=== PATIENT | female | born 2005 | race Caucasian/White ===

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

== ENCOUNTER 2024-02-11 17:03 | Emergency (ER) | payer OTHER ==
[2024-02-11] MEDS: BUPIVACAINE 0.5% PF 10 ML VIAL SUBQ STA (18:01)
--- NOTE | 2024-02-11 18:20 | ED Physician Documentation ---
PD HPI SKIN - Stated complaint Stated Complaint: INGROWN TOENAIL - Chief complaint Chief Complaint: Wound - Additional information Additional information: 18-year-old female presents emergency department for left first toe ingrown toenail to the medial aspect. Patient says that this has been ongoing now for couple days she tried to use tools at home to alleviate the pain but she started to notice increased swelling today to the point where she feels like is having a hard time ambulating on it or touching it. She does not have any type 2 diabetes. And said that she did not clean the tools prior to using them on her toe. No fevers or chills. PD PAST MEDICAL HISTORY - Past Medical History Cardiovascular: None Respiratory: Asthma Neuro: None Endocrine/Autoimmune: None GI: None REINSURANCE CLAIM ANALYST: None HEENT: None Psych: Depression, Anxiety Musculoskeletal: None Derm: None - Past Surgical History Past Surgical History: No - Present Medications Home Medications: Ambulatory Orders Medication Instructions Recorded Confirmed Sertraline [Zoloft] 100 mg PO DAILY 12/11/20 02/11/24 - Allergies Allergies/Adverse Reactions: Allergies Allergy/AdvReac Type Severity Reaction Status Date / Time No Known Drug Allergies Allergy Verified 02/11/24 17:13 - Social History Does the pt smoke?: No Smoking Status: Never smoker Does the pt drink ETOH?: No Does the pt have substance abuse?: No - Immunizations Immunizations are current?: Yes - POLST Patient has POLST: No PD ED PE NORMAL - Vitals Vital signs reviewed: Yes - General General: Alert and oriented X 3, No acute distress, Well developed/nourished - Free text exam Free text exam: Left first toe. Swelling and inflammation with scant purulent drainage to the left distal medial toenail. Results - Vitals Vitals: Vital Signs - 24 hr 02/11/24 02/11/24 17:09 18:52 Temperature 36.8 C 37.2 C Heart Rate 78 80 Respiratory 16 18 Rate Blood Pressure 133/95 H 128/79 O2 Saturation 100 98 Oxygen O2 Source Room air PD Medical Decision Making - ED course ED course: 18-year-old female presents emergency department for an ingrown toenail. The ingrown toenail is very mild a mild incision was placed along the medial aspect of the toenail and ingrown toenail was removed without any difficulty or complication. She was given bacitracin ointment to put on top and was told to continue with bacitracin with ointment with bulky dressing of the left toenail until it completely heals. Patient was taught how to cut toenails at home to prevent this from continuing to happen again. Given that the ingrown toenail was removed I do not see any indication to prescribe antibiotics for this. Patient given return precautions and taught signs and symptoms of infection to watch out for. Departure - Departure Disposition: 01 Home, Self Care Clinical Impression: Ingrown toenail of left foot Condition: Good Instructions: Ingrown Toenails, ED Ingrown Toenail Excised Comments: Thank you for trusting us with your care, we have evaluated you for your left toenail infection. We have excised and removed the ingrown portion of your toenail. In the future make sure that you are only using clean tools if you are trying to manage ingrown toenails at home. Make sure that you are cutting your toenails straight across instead of deep or too short as this can cause ingrown toenails in the future. Wash it with only soap and water he can do some Epsom salt bath soaks as well to help dry out the infection. Please come back to the ER if you are starting to notice any worsening signs or symptoms of infection which include drainage that is yellow/green, worsening redness and swelling, streaking going up your foot, or fat swollen red toe. Forms: PCP List Discharge Date/Time: 02/11/24 18:47
[2024-02-11] MEDS: BACITRACIN ZINC OINT 1 PACKET TOP STA (18:39)
[2024-02-11 18:58] VITALS: BP 128/79; O2SAT 98
== END 2024-02-11 18:47 | disposition home or self-care (01) ==
LOC: ED 17:03
DX: L60.0 Ingrowing nail (principal)
CPT/HCPCS: 11750; 99283; A9270

== ENCOUNTER 2024-03-14 19:47 | Emergency (ER) | payer OTHER ==
[2024-03-14 19:53] VITALS: BP 144/92; O2SAT 100
--- NOTE | 2024-03-14 20:15 | ED Physician Documentation ---
History of Present Illness - Stated complaint Stated Complaint: L EAR PX - Chief complaint Chief Complaint: Heent - History obtained from History obtained from: Patient - History of Present Illness Timing: Today Pain level max: 5 Pain level now: 5 - Additonal information Additional information: 18-year-old female presents to the emergency department complaint of left ear pain that started today. Has had mild rhinorrhea, cough and congestion as well. No fevers. No abdominal pain, nausea, vomiting. Feels similar to prior ear infections. No significant sore throat. No chest pain. Denies any possibility of . Not breast-feeding. Nothing makes it better or worse. Review of Systems Constitutional: denies: Fever, Chills GI: denies: Vomiting : denies: Now [facility] PAST MEDICAL HISTORY - Past Medical History Past Medical History: Yes Cardiovascular: None Respiratory: Asthma Neuro: None Endocrine/Autoimmune: None GI: None TAIL PULLER: None HEENT: None Psych: Depression, Anxiety Musculoskeletal: None Derm: None - Past Surgical History Past Surgical History: No - Present Medications Home Medications: Ambulatory Orders Medication Instructions Recorded Confirmed Sertraline [Zoloft] 100 mg PO DAILY 12/11/20 02/11/24 Amox/Clav 875/125 [Augmentin] 1 tab PO Q12H #14 tablet 03/14/24 - Allergies Allergies/Adverse Reactions: Allergies Allergy/AdvReac Type Severity Reaction Status Date / Time No Known Drug Allergies Allergy Verified 03/14/24 19:52 - Social History Does the pt smoke?: No Smoking Status: Never smoker Does the pt drink ETOH?: No Does the pt have substance abuse?: No - Immunizations Immunizations are current?: Yes - POLST Patient has POLST: No PD ED PE NORMAL - Vitals Vital signs reviewed: Yes - General General: Alert and oriented X 3, No acute distress - HEENT HEENT: Moist mucous membranes, Pharynx benign, Other (Right ear is normal, left TM is erythematous, dull, bulging with loss of landmarks. Purulent fluid present.) - Neck Neck: Supple, no meningeal sign, No adenopathy - Cardiac Cardiac: RRR - Respiratory Respiratory: No respiratory distress, Clear bilaterally - Derm Derm: Warm and dry - Neuro Neuro: Alert and oriented X 3 Results - Vitals Vitals: Vital Signs - 24 hr 03/14/24 19:48 Temperature 36.8 C Heart Rate 114 H Respiratory 16 Rate Blood Pressure 144/92 H O2 Saturation 100 Oxygen O2 Source Room air PD Medical Decision Making - ED course Complexity details: considered differential, d/w patient ED course: Patient with a left acute otitis media. Will place on antibiotics for this. Right ear is normal. Patient is otherwise well-appearing, nontoxic. Afebrile. No hypoxia. No respiratory distress. No indication for further workup at this time. Patient counseled regarding signs and symptoms for which I believe and urgent re-evaluation would be necessary. Patient with good understanding of and agreement to plan and is comfortable going home at this time This document was made in part using voice recognition software. While efforts are made to proofread this document, sound alike and grammatical errors may occur. Departure - Departure Disposition: Home, Self Care Clinical Impression: Otitis media Qualifiers: Otitis media type: suppurative Chronicity: acute Laterality: left Recurrence: non-recurrent Spontaneous tympanic membrane rupture: without spontaneous rupture Qualified Code(s): H66.002 - Acute suppurative otitis media without spontaneous rupture of ear drum, left ear Condition: Good Instructions: ED Otitis Media Acute Adult Follow-Up: your,doctor as needed [Other] Prescriptions: Amox/Clav 875/125 [Augmentin] 1 tab PO Q12H #14 tablet Comments: Your prescription was sent to [facility] in [place]. Please take all antibiotics until gone. Please return if you worsen. You can use Motrin or Tylenol as needed for pain at home. Forms: PCP List Discharge Date/Time: 03/14/24 20:26
[2024-03-14] MEDS: AMOX/CLAV 875 MG/125 MG TABLET PO STA (20:21)
== END 2024-03-14 20:26 | disposition home or self-care (01) ==
LOC: ED 19:47
DX: H66.002 Acute suppurative otitis media without spontaneous rupture of ear drum, left ear (principal)
CPT/HCPCS: 99283; A9270